=== PATIENT | female | born 1990 | race Caucasian/White ===

== ENCOUNTER 2016-11-28 12:51 | Outpatient (CLI) | payer OTHER ==
[2016-11-28 12:57] VITALS: BP 164/80; PULSE 67
[2016-11-28] MEDS ORDERED: PREN-93 PO (12:59)
[2016-11-28] MEDS ORDERED: LABE200T25 PO (12:59)
[2016-11-28] MEDS ORDERED: FER325 PO (13:00)
--- NOTE | 2016-11-28 13:09 | RADRPT ---
PROCEDURE: US OB biophysical profile. CLINICAL INDICATION: decreased movements, hypertension TECHNIQUE: Multiple sonographic images of the pelvis were obtained. The images were reviewed on a PACS workstation. COMPARISON: No prior studies are available for comparison. FINDINGS: There is a single viable intrauterine gestation. Cardiac activity is present with 150 beats per min nome. There is a vertex presentation. The placenta is posterior. There is no evidence of placental abruption. There is a normal amount of amniotic fluid with an MAHSA = 9.2 cm. Biophysical profile: movement 2/2 tone 2/2. breathing 2/2 MAHSA 2/2 Total 12/02 RPTAT: AA . IMPRESSION: Normal biophysical profile. . .En Ortez MD, MD Date Time Electronically viewed and signed by .En Ortez MD, MD on 11/28/2016 13:08 .S/
[2016-11-28] MEDS ORDERED: DEXTROSE 5%-LR 1,000 ML IV SCH (14:00)
--- NOTE | 2016-11-28 15:34 | TRIAGE ---
OB Triage Datetime Report Generated by CPN: 11/28/2016 15:34 Datetime: 11/28/2016 15:08 Comments: Dr. Carlos at bedside to review strip and blood pressures 140's-150's over 80. New order to sent pt home and to follow up on nubia as schedule. Datetime: 11/28/2016 15:06 Labor Evaluation Frequency: 4-11 Monitor Mode: External Duration (sec)2399: 40-70 Quality: Mild Pattern: Normal: <= 5 Contractions in 10 Minutes Resting Tone [place]: Relaxed Heart Rate FHR Baseline Rate: 130 Monitor Mode: External US FHR Baseline Changes: No Baseline Change Variability: Moderate 6-25 bpm Accelerations: 15X15 Decelerations: None Category: Category I Pain Assessment Pain Scale: 0 Pain Presence: None/Denies Pain Type: N/A Pain Goal: 3 Datetime: 11/28/2016 14:59 Labor Evaluation Frequency: 3-11 Monitor Mode: External Duration (sec)2399: 40-70 Quality: Mild Pattern: Normal: <= 5 Contractions in 10 Minutes Resting Tone [place]: Relaxed Heart Rate FHR Baseline Rate: 135 Monitor Mode: External US FHR Baseline Changes: No Baseline Change Variability: Moderate 6-25 bpm Accelerations: 15X15 Decelerations: None Category: Category I Pain Assessment Pain Scale: 0 Pain Presence: None/Denies Pain Type: N/A Pain Goal: 3 Datetime: 11/28/2016 14:22 Labor Evaluation Frequency: x3 Monitor Mode: External Duration (sec)2399: 40-70 Quality: Mild Pattern: Normal: <= 5 Contractions in 10 Minutes Resting Tone [place]: Relaxed Heart Rate FHR Baseline Rate: 145 Monitor Mode: External US FHR Baseline Changes: No Baseline Change Variability: Moderate 6-25 bpm Accelerations: 15X15 Decelerations: None Category: Category I Datetime: 11/28/2016 14:18 Comments: Pt refused the IV she stated "Baby is being moving " Datetime: 11/28/2016 14:17 Comments: Assume care back from pt Datetime: 11/28/2016 13:43 Comments: This RN to lunch endorse care to Cinthia RN Datetime: 11/28/2016 13:42 Comments: Dr. Gonzalez was informed of pt's BPP 8/8, MAHSA 9.2, Min variability. New order to start I V and give D5LR Datetime: 11/28/2016 13:40 Labor Evaluation Frequency: x2 Monitor Mode: External Duration (sec)2399: 40-50 Quality: Mild Pattern: Normal: <= 5 Contractions in 10 Minutes Resting Tone [place]: Relaxed Heart Rate FHR Baseline Rate: 145 Monitor Mode: External US FHR Baseline Changes: No Baseline Change Variability: Moderate 6-25 bpm Accelerations: 15X15 Decelerations: None Category: Category I Pain Assessment Pain Scale: 0 Pain Presence: None/Denies Pain Type: N/A Pain Goal: 3 Datetime: 11/28/2016 13:04 Stage of : OB Triage Assessment Type: Triage Maternal Assessment Level of Consciousness: Fully Conscious DTR's/Clonus: DTRs 2+; No Clonus Headache: Denies Blurred Vision: No Respiratory Effort: Unlabored; Regular Rhythm; Equal Expansion Breath Sounds, Left: Clear and Equal Breath Sounds, Right: Clear and Equal Nausea/Vomiting: Denies RUQ Epigastric Pain: Denies Lower Extremities Edema: None Upper Extremities Edema: None Facial Edema: None Temperature Route: Axillary Fall Risk Assessment History of Falling: (0) No Secondary Diagnosis: (0) No Ambulatory Aid: (0) Bedrest/Nurse Assist IV Therapy: (0) No Gait: (0) Normal/Bedrest/Immobile Mental Status: (0) Oriented to Own Ability Fall Score: 0 Fall Risk Score Definition: No Risk: No action required Pain Assessment Pain Scale: 3 Pain Presence: None/Denies Pain Type: N/A Pain Goal: 3 Datetime: 11/28/2016 13:00 Time of Arrival: 11/28/2016 12:33 EGA: 35.0 Arrived By: Ambulatory Arrived From: Other Unit in Hospital Chief Complaint: Sent from T for extended monitoring Movement: Present Contractions: Denies/Absent Rupture of Membranes: Denies Vaginal Bleeding: None Vaginal Discharge: Denies Recent Sexual Intercouse: Denies Abdominal Trauma: Not Applicable Patient Complaints: None Initial Plan: NST, BPP Datetime: 11/28/2016 12:59 Comments: Ultrasound in progress
== END 2016-11-28 15:25 | disposition home or self-care (01) ==
LOC: OBT 12:51 → L-D 12:52 → OBT 15:25
PROVIDERS: ATTEND Obstetrics & Gynecology
DX: O76 Abnormality in fetal heart rate and rhythm complicating labor and delivery (principal); Z3A.35 35 weeks gestation of pregnancy
CPT/HCPCS: 76818; J7121; Z7500; G0463

== ENCOUNTER 2016-12-25 15:37 | Inpatient (IN) | payer OTHER ==
[~2016-12-25] VITALS: Ht 162.6 cm; Wt 109.1 kg
[~2016-12-25 15:37] MED LIST: FER325 PO; LABE200T25 PO; PREN-93 PO
[2016-12-25] MEDS ORDERED: LACTATED RINGER'S 1,000 ML IV PRN (16:10)
[2016-12-25 16:36] VITALS: Ht 162.6 cm; Wt 109.1 kg
[2016-12-25] MEDS: LACTATED RINGER'S 1,000 ML IV SCH ×2 (16:54→23:06)
[2016-12-25] MEDS ORDERED: DINOPROSTONE 10 MG VAG SUPP VAG ONE (16:54)
[2016-12-25] MEDS ORDERED: MISOPROSTOL 200 MCG TAB PR PRN (17:00)
[2016-12-25] MEDS ORDERED: METHYLERGONOVINE 0.2 MG INJ IM PRN (17:00)
[2016-12-25] MEDS ORDERED: OXYTOCIN 30 UNITS/LR 500 ML IV SCH ×2 (17:00)
[2016-12-25] MEDS ORDERED: LIDOCAINE 1% (MPF) 30 ML INJ INJ PRN (17:00)
[2016-12-25] MEDS ORDERED: OXYTOCIN 30 UNITS/LR 500 ML IV PRN (17:00)
[2016-12-25] MEDS ORDERED: IBUPROFEN 600 MG TAB PO PRN (17:00)
[2016-12-25] MEDS ORDERED: DINOPROSTONE 10 MG VAG SUPP ONE (17:00)
[2016-12-25] MEDS ORDERED: AMPICILLIN 2 GM/NS (PMX) 100 ML IV ONE (17:00)
[2016-12-25] MEDS ORDERED: CARBOPROST 250 MCG INJ IM PRN (17:00)
[2016-12-25] MEDS ORDERED: BUTORPHANOL 2 MG INJ IV PRN (17:00)
[2016-12-25 17:06] LABS: BASOPHILS % 0.2 % (0.0-2.0); EOSINOPHILS # 0.1 10^3/ul (0.0-0.5); EOSINOPHILS % 0.9 % (0.0-7.0); HEMATOCRIT 34.3 % (37.0-47.0); HEMOGLOBIN 12.3 g/dl (12.0-16.0); LYMPHOCYTES # 1.4 10^3/ul (0.8-2.9); LYMPHOCYTES % 14.3 % (15.0-51.0); MEAN CORPUSCULAR HEMOGLOBIN 31.9 pg (29.0-33.0); MEAN CORPUSCULAR HGB CONC 35.9 g/dl (32.0-37.0); MEAN CORPUSCULAR VOLUME 88.9 fl (82.0-101.0); MEAN PLATELET VOLUME 10.3 fl (7.4-10.4); MONOCYTE # 0.6 10^3/ul (0.3-0.9); MONOCYTES % 6.5 % (0.0-11.0); NEUTROPHILS % 77.7 % (39.0-77.0); PLATELET COUNT 253 10^3/UL (140-415); RED BLOOD COUNT 3.86 10^6/ul (4.20-5.40); RED CELL DISTRIBUTION WIDTH 12.6 % (11.5-14.5); WHITE BLOOD COUNT 9.5 10^3/ul (4.8-10.8)
[2016-12-25 17:29] LABS: INR 0.88; PROTIME 11.9 Sec (12.2-14.2); PT RATIO 0.9
[2016-12-25 17:30] LABS: PARTIAL THROMBOPLASTIN TIME 26.9 Sec (25.0-35.0)
[2016-12-25] MEDS: LABETALOL 200 MG TAB PO SCH (21:00)
[2016-12-26] MEDS: AMPICILLIN 1 GM/NS (PMX) 50 ML IV SCH ×4 (01:26→12:56)
[2016-12-26] MEDS ORDERED: OXYTOCIN 30 UNITS/LR 500 ML BAG IV ONE (07:00)
[2016-12-26] MEDS ORDERED: OXYTOCIN 30 UNITS/LR 500 ML IV SCH (08:30)
[2016-12-26] MEDS: LACTATED RINGER'S 1,000 ML IV SCH (08:35)
[2016-12-26] MEDS: LABETALOL 200 MG TAB PO SCH ×2 (08:49→22:00)
[2016-12-26 10:18] LABS: ADD UMIC YES; UR ASCORBIC ACID NEGATIVE (NEGATIVE); UR BILIRUBIN (Dip) NEGATIVE (NEGATIVE); UR BLOOD (Dip) NEGATIVE (NEGATIVE); UR CLARITY CLEAR (CLEAR); UR COLOR YELLOW (YELLOW); UR GLUCOSE (Dip) NEGATIVE (NEGATIVE); UR KETONES (Dip) NEGATIVE (NEGATIVE); UR LEUKOCYTE ESTERASE (Dip) TRACE Leu/ul (NEGATIVE); UR NITRITE (Dip) NEGATIVE (NEGATIVE); UR RBC 1 /HPF (0-5); UR SQUAMOUS EPITHELIAL CELL FEW /HPF (FEW); UR TOTAL PROTEIN (Dip) NEGATIVE (NEGATIVE); UR UROBILINOGEN (Dip) NEGATIVE (NEGATIVE)
[2016-12-26] MEDS ORDERED: FENTAnyl 2MCG/ML-ROPIV 0.2% 100 ML ONE (12:45)
[2016-12-26] MEDS ORDERED: FENTAnyl 2MCG/ML-ROPIV 0.2% 100 ML BAG EPI SCH (13:45)
[2016-12-26] MEDS ORDERED: HYDROmorphONE 1 MG/ML SYG IV PRN ×2 (14:00)
[2016-12-26] MEDS ORDERED: DIPHENHYDRAMINE 50 MG INJ IV PRN ×2 (14:00→18:00)
[2016-12-26] MEDS ORDERED: NALOXONE (0.4 MG/ML) INJ IV PRN (14:00)
[2016-12-26] MEDS ORDERED: ONDANSETRON 4 MG INJ IV PRN ×2 (14:00→18:00)
--- NOTE | 2016-12-26 16:08 | HP ---
Date/Time of Note Date/Time of Note DATE: 12/26/16 TIME: 15:50 OB - History Hx of Present Free Text/Dictation This is a 26 years old female 4 para 3 EDC of January 02, 2017 admitted to [facility] complaining of labor contraction, examination on admission, cervix 2-3 cm dilated 60% effaced vertex at -3 station osei every 2-4 minutes moderate quality heart rate at 145 bpm. Patient has been under the care of the [facility] her was not complicated with gestational diabetes or -induced hypertension [employer] history [place] at age 11 history of total of 4 including present with 3 normal vaginal delivery Chief Complaint: Labor pain Estimated Due Date: Jan 02, 2017 : 4 Para: 3 Care: Good Care Ultrasounds: Normal mid trimester US Obstetrical Complications: None Medical Complications: None Past Family/Social History * Past Medical, Surgical, Family and Obstetric Histories reviewed from chart. Rubella: immune RPR/VDRL: Negative GBS Status: Negative HBsAG: Negative OB Admission Exam Physical Exam HEENT: WNL Heart: Rhythm Normal Lungs: Clear, Equal Abdomen: WNL Extremities: Normal Reflexes: Normal Cervical Dilatation: 3cm Effacement: Other (60%) Station: -2 Membranes: Intact Heart Rate: 130's Decelerations: No Decelerations Varibility: Moderate Contractions on Admission: < 5 Minutes Apart Intensity: Moderate Last 72 hours Lab Results CBC & BMP 12/25/16 16:10 TESFAYE FERRERA MD Dec 26, 2016 16:01
[2016-12-26] MEDS ORDERED: CEFAZOLIN 2 GM/50 ML (PMX) 50 ML IVPB ONE (16:30)
[2016-12-26] MEDS ORDERED: CEFAZOLIN 2 GM/50 ML (PMX) 50 ML IV SCH (16:30)
[2016-12-26] MEDS ORDERED: FENTAnyl 50 MCG/ML VIAL ONE (17:17)
[2016-12-26] MEDS ORDERED: LIDOCAINE 2%/EPI 30 ML INJ ONE (17:24)
[2016-12-26] MEDS ORDERED: morphine SULFATE/PF (10 MG/10 ML) INJ ONE (17:55)
[2016-12-26] MEDS ORDERED: KETOROLAC 30 MG INJ IV PRN (18:00)
[2016-12-26] MEDS ORDERED: METOCLOPRAMIDE 10 MG INJ IV PRN (18:00)
[2016-12-26] MEDS ORDERED: MEPERIDINE 25 MG INJ IV PRN (18:00)
[2016-12-26] MEDS ORDERED: HYDROmorphONE (0.2 MG/ML) 10ML SYG IV PRN ×3 (18:00)
[2016-12-26] MEDS ORDERED: OXYCODONE/ACETAMINOPHEN (5/325) TAB PO PRN (18:00)
[2016-12-26] MEDS ORDERED: FENTAnyl 50 MCG/ML VIAL IV PRN ×3 (18:00)
[2016-12-26] MEDS ORDERED: ALBUTEROL 0.083% (NEB) 2.5 MG/3 ML AMP HHN PRN (18:00)
--- NOTE | 2016-12-26 18:22 | OPR ---
Operative Report Planned Procedure Free Text/Dictation 26 years old female 4 para 3 EDC January 02, 2017 complicated with hypertension suitable superimposed -induced hypertension admitted for induction of labor during the course of labor noted category 2 and 3 heart tracing since the anticipating a quick and timely delivery was discussed with the patient and alternative route of delivery section decided is being prepared for primary since had requested tubal ligation she will undergo bilateral tubal ligation at the time of her section Procedure date Dec 26, 2016 Procedure(s) Primary bilateral tubal ligation Performed by: TESFAYE FERRERA MD Assisting provider: BECKI GORDILLO MD Anesthesiologist: HENNA CAGLE Pre-procedure diagnosis 39 week, see complicated with -induced hypertension Anesthesia Type: spinal Procedure Description Under satisfactory [] spinal anesthesia, the patient was prepped and draped and placed in a supine position, tilted to the left. Pfannenstiel incision was made , carried through the subcutaneous tissue. Bleeders brought under control with electrocautery. Fascia incised to the length of the incision. Rectus muscles from the fascia, divided midline. Peritoneum exposed, entered through a transverse incision. Exploration of abdomen revealed gravid uterus normal- appearing tubes and ovaries. Bladder flap was developed. Transverse incision was made in the lower segment of the uterus. Amniotic sac ruptured. [Clear] amniotic fluid noted baby boy was delivered from unengaged vertex. [] Nasal oropharyngeal suction was performed. baby handed to the team for immediate attention is received 20 units of Pitocin. placenta delivered manually intact. Uterine cavity cleaned with wet sponge and drainage established. Uterus closed in 2 layers using [Krill #1] in continuous fashion. Peritoneal cavity irrigated with warm saline. Sponge, needle and instrument count reported to be correct. Abdominal peritoneum closed with [chromic cut] continuously. Rectus muscle approximated with [erupted 2-0 chromic catgut]. Fascia closed with 1 PDS subcutaneous tissue approximated with interrupted 2-0 chromic catgut skin closed with NSORB, Estimated blood loss [600]mL. Urine bag contained 200]mL of clear urine patient tolerated procedure well and transferred to recovery room in good condition. Post-Procedure Findings: Live Baby boy 9 and 9 Specimen removed: No Complications: None Pt Condition post procedure: stable Physician Certification I, the undersigned physician, hereby certify that I have discussed the procedure described in this consent form with this patient (or the patient's legal underwriting service representative), including: * The risk and benefits of the procedure; * Any adverse reactions that may reasonably be expected to occur; * Any alternative efficacious methods of treatment which may be medically viable ; * The potential problems that may occur during recuperation; * Potential for blood transfusion and associated risks/benefits; and * Any research or economic interest I may have regarding this treatment. I further certify that the patient/legally responsible person was encouraged to ask question and that all questions were answered. TESFAYE FERRERA MD Dec 26, 2016 18:21
[2016-12-26] MEDS: OXYTOCIN 30 UNITS/LR 500 ML IV SCH (21:54)
[2016-12-26] MEDS ORDERED: CARBOPROST 250 MCG INJ IM PRN (22:00)
[2016-12-26] MEDS ORDERED: LANOLIN 7 GM TUBE TOP PRN (22:00)
[2016-12-26] MEDS ORDERED: CEFAZOLIN 1 GM/50 ML (PMX) 50 ML IVPB SCH (22:00)
[2016-12-26] MEDS ORDERED: METHYLERGONOVINE 0.2 MG INJ IM PRN (22:00)
[2016-12-26] MEDS ORDERED: OXYTOCIN 30 UNITS/LR 500 ML IV PRN (22:00)
[2016-12-26] MEDS ORDERED: MISOPROSTOL 200 MCG TAB PR PRN (22:00)
[2016-12-26 23:15] VITALS: BP 144/70; PULSE 80; RESP 18
[2016-12-27] MEDS: LACTATED RINGER'S 1,000 ML IV SCH ×4 (00:35→16:37)
[2016-12-27] MEDS: OXYTOCIN 30 UNITS/LR 500 ML IV SCH ×6 (01:54→21:54)
[2016-12-27] MEDS: KETOROLAC 30 MG INJ IV PRN ×2 (04:05→12:51)
[2016-12-27 04:33] VITALS: BP 101/75; PULSE 78; RESP 20
[2016-12-27 08:10] VITALS: BP 112/67; PULSE 77; RESP 20
[2016-12-27 08:45] LABS: BASOPHILS % 0.2 % (0.0-2.0); EOSINOPHILS % 0.3 % (0.0-7.0); HEMATOCRIT 32.6 % (37.0-47.0); HEMOGLOBIN 11.1 g/dl (12.0-16.0); MEAN CORPUSCULAR HEMOGLOBIN 30.9 pg (29.0-33.0); MEAN CORPUSCULAR VOLUME 90.8 fl (82.0-101.0); MEAN PLATELET VOLUME 9.9 fl (7.4-10.4); MONOCYTE # 0.6 10^3/ul (0.3-0.9); MONOCYTES % 6.5 % (0.0-11.0); NEUTROPHILS % 81.6 % (39.0-77.0); PLATELET COUNT 191 10^3/UL (140-415); RED BLOOD COUNT 3.59 10^6/ul (4.20-5.40); RED CELL DISTRIBUTION WIDTH 12.4 % (11.5-14.5); WHITE BLOOD COUNT 9.4 10^3/ul (4.8-10.8)
[2016-12-27] MEDS: LABETALOL 200 MG TAB PO SCH ×2 (09:14→21:26)
[2016-12-27] MEDS: SENNA/DOCUSATE NA (8.6MG/50MG) TAB PO SCH ×2 (09:15→21:26)
[2016-12-27 12:00] VITALS: BP 126/61; PULSE 80; RESP 20
--- NOTE | 2016-12-27 12:21 | PN ---
Date/Time of Note Date/Time of Note DATE: 12/27/16 TIME: 12:16 OB Subjective Subjective Subjective Post C section day Doing Well Afebrile Ambulatory Chest Clear Breasts are soft , Nipples are intact Abdomen is soft Fundus is firm Moderate amount of lochia Incision is clean ,No evidence of infection No calf tenderness No ankle edema Her blood pressure running around 1 40/80 . She has a history of elevated blood pressure even between her so we will continue her labetalol for now Laboratory Tests Test 12/27/16 08:18 White Blood Count 9.410^3/ul Red Blood Count 3.5910^6/ul Hemoglobin 11.1g/dl Hematocrit 32.6% Mean Corpuscular Volume 90.8fl Mean Corpuscular Hemoglobin 30.9pg Mean Corpuscular Hemoglobin Concent 34.0g/dl Red Cell Distribution Width 12.4% Platelet Count 62740^3/UL Mean Platelet Volume 9.9fl Neutrophils % 81.6% Lymphocytes % 11.0% Monocytes % 6.5% Eosinophils % 0.3% Basophils % 0.2% Nucleated Red Blood Cells % 0.0/100WBC Neutrophils # (Manual) 7.710^3/ul Lymphocytes # 1.010^3/ul Monocytes # 0.610^3/ul Eosinophils # 0.010^3/ul Basophils # 0.010^3/ul Nucleated Red Blood Cells # 0.010^3/ul Current Medications Medications (Trade) Dose Ordered Sig/Claus Route PRN Reason Start Time Stop Time Status Last Admin Dose Admin Lactated Ringer's 1,000 ml @ 125 mls/hr Q8H IV 12/25/16 16:37 12/27/16 00:35 Ampicillin 100 ml @ 100 mls/hr ONCE ONCE IV 12/25/16 17:00 12/25/16 17:59 DC 12/25/16 17:07 Ampicillin (Ampicillin 1 Gm/ NS (Pmx)) 50 ml @ 100 mls/hr Q4H IV 12/25/16 21:00 12/26/16 22:02 DC 12/26/16 12:56 Butorphanol Tartrate (Stadol) 2 mg Q2H PRN IV PAIN 12/25/16 17:00 12/26/16 22:02 DC Lidocaine 30 ml 30 ml ONCE PRN INJ EPISIOTOMY/TEARING 12/25/16 17:00 12/26/16 22:02 DC Oxytocin/Lactated Ringer's 500 ml @ 125 mls/hr ONCE -MAY REPEAT X1 IV 12/25/16 17:00 12/26/16 22:02 DC Oxytocin/Lactated Ringer's 500 ml @ 125 mls/hr ONCE IV 12/25/16 17:00 12/26/16 22:02 DC 12/26/16 20:27 Ibuprofen 600 mg 600 mg ONCE PRN PO Mild Pain (Pain Score 1-3) 12/25/16 17:00 12/26/16 22:02 DC Lactated Ringer's 1,000 ml @ 2,000 mls/hr Q30M PRN IV PRE-EPIDURAL BOLUS 12/25/16 16:10 12/26/16 22:02 DC Oxytocin/Lactated Ringer's 500 ml @ 0 mls/hr ONCE PRN IV For Hemorrhage Management 12/25/16 17:00 12/26/16 22:02 DC Methylergonovine Maleate (Methergine) 0.2 mg ONCE PRN IM VAGINAL BLEEDING 12/25/16 17:00 12/26/16 22:02 DC Carboprost Tromethamine (Hemabate) 250 mcg ONCE PRN IM VAGINAL BLEEDING 12/25/16 17:00 12/26/16 22:02 DC Misoprostol (Cytotec) 1,000 mcg ONCE PRN MI VAGINAL BLEEDING 12/25/16 17:00 12/26/16 22:02 DC Dinoprostone (Cervidil Vaginal Supp) 10 mg STK-MED ONCE .ROUTE 12/25/16 17:00 12/25/16 17:01 DC Dinoprostone (Cervidil Vaginal Supp) 10 mg ONCE ONCE VAG 12/25/16 16:54 12/25/16 17:07 DC 12/25/16 17:08 Labetalol HCl 200 mg 200 mg BID PO 12/25/16 21:00 12/27/16 09:14 Oxytocin/Lactated Ringer's 500 ml @ 0 mls/hr TITRATE IV 12/26/16 08:30 12/26/16 22:02 DC 12/26/16 08:36 Fentanyl/ Ropivacaine 100 ml @ ud STK-MED ONCE .ROUTE 12/26/16 12:45 12/26/16 12:46 DC Diphenhydramine HCl (Benadryl) 25 mg Q6H PRN IV ITCHING 12/26/16 14:00 12/27/16 13:59 Fentanyl/ Ropivacaine 100 ml EPIDURAL INFUSION EPI 12/26/16 13:45 12/26/16 22:02 DC Hydromorphone HCl (Dilaudid) 0.2 mg Q3H PRN IV PAIN LEVEL 1-5 12/26/16 14:00 12/27/16 13:59 Hydromorphone HCl (Dilaudid) 0.4 mg Q3H PRN IV PAIN LEVEL 6-10 12/26/16 14:00 12/27/16 13:59 12/26/16 22:01 Ketorolac Tromethamine (Toradol) 30 mg Q6H PRN IV PAIN 12/26/16 14:00 12/27/16 13:59 12/27/16 04:05 Naloxone HCl (Narcan) 0.1 mg Q2M PRN IV FOR RESP RATE 8 OR LESS 12/26/16 14:00 12/27/16 13:59 Ondansetron HCl 4 mg 4 mg Q6H PRN IV NAUSEA AND/OR VOMITING 12/26/16 14:00 12/27/16 13:59 Cefazolin Sodium/ Dextrose 50 ml @ 100 mls/hr ONCE IV 12/26/16 16:30 12/26/16 22:02 DC Cefazolin Sodium/ Dextrose (Ancef 2 Gm/50 ml (Pmx)) 50 ml @ ud STK-MED ONCE IVPB 12/26/16 16:30 12/26/16 16:31 DC Fentanyl (Sublimaze) 100 mcg STK-MED ONCE .ROUTE 12/26/16 17:17 12/26/16 17:18 DC Lidocaine/ Epinephrine (Xylocaine 2%/ Epi) 30 ml STK-MED ONCE .ROUTE 12/26/16 17:24 12/26/16 17:25 DC Albuterol (Proventil 0.083% (Neb)) 2.5 mg PACU ORDER PRN HHN WHEEZING 12/26/16 18:00 12/26/16 22:02 DC Diphenhydramine HCl (Benadryl) 25 mg PACU ORDER PRN IV PRURITUS 12/26/16 18:00 12/26/16 22:02 DC Fentanyl (Sublimaze) 25 mcg PACU ORDER PRN IV MILD PAIN LEVEL 1-3 12/26/16 18:00 12/26/16 22:02 DC Fentanyl (Sublimaze) 50 mcg PACU ODER PRN IV MODERATE PAIN LEVEL 4-6 12/26/16 18:00 12/26/16 22:02 DC Fentanyl (Sublimaze) 75 mcg PACU ORDER PRN IV SEVERE PAIN LEVEL 7-10 12/26/16 18:00 12/26/16 22:02 DC Hydromorphone HCl (Dilaudid (Rec)) 0.2 mg PACU ORDER PRN IV MILD PAIN LEVEL 1-3 12/26/16 18:00 12/26/16 22:02 DC Hydromorphone HCl (Dilaudid (Rec)) 0.4 mg PACU ORDER PRN IV MODERATE PAIN LEVEL 4-6 12/26/16 18:00 12/26/16 22:02 DC Hydromorphone HCl (Dilaudid (Rec)) 0.6 mg PACU ORDER PRN IV SEVERE PAIN LEVEL 7-10 12/26/16 18:00 12/26/16 22:02 DC Ketorolac Tromethamine (Toradol) 30 mg PACU ORDER PRN IV FOR PAIN AFTER IV NARCOTIC MED 12/26/16 18:00 12/26/16 22:02 DC 12/26/16 20:21 Meperidine HCl (Demerol) 25 mg PACU ORDER PRN IV POST-OP RIGORS 12/26/16 18:00 12/26/16 22:02 DC Metoclopramide HCl (Reglan) 10 mg PACU ORDER PRN IV NAUSEA AND/OR VOMITING 12/26/16 18:00 12/26/16 22:02 DC Ondansetron HCl (Zofran Inj) 4 mg PACU ORDER PRN IV NAUSEA AND/OR VOMITING 12/26/16 18:00 12/26/16 22:02 DC Oxycodone/ Acetaminophen (Percocet (5/ 325)) 1 tab PACU ORDER PRN PO PAIN LEVEL 1-5 12/26/16 18:00 12/26/16 22:02 DC Morphine Sulfate (Duramorph) 10 mg STK-MED ONCE .ROUTE 12/26/16 17:55 12/26/16 17:56 DC Acetaminophen/ Hydrocodone Bitart (Carlotta (5/325)) 1 tab Q4H PRN PO PAIN LEVEL 4-6 12/27/16 14:00 Acetaminophen/ Hydrocodone Bitart (Carlotta (5/325)) 2 tab Q4H PRN PO PAIN LEVEL 7-10 12/27/16 14:00 Oxycodone/ Acetaminophen (Percocet (5/ 325)) 1 tab Q4H PRN PO PAIN LEVEL 4-6 12/27/16 14:00 Oxycodone/ Acetaminophen (Percocet (5/ 325)) 2 tab Q4H PRN PO PAIN LEVEL 7-10 12/27/16 14:00 Ibuprofen (Motrin) 600 mg Q6 PO 12/27/16 18:00 Simethicone (Mylicon) 160 mg Q8H PRN PO DISTENSION/GAS/BLOATING 12/26/16 22:00 Senna/Docusate Sodium (Senokot-S) 1 tab BID PO 12/27/16 09:00 12/27/16 09:15 Lanolin (Khl-Y-Seutwd) 1 applic BEDSIDE MEDICATION PRN TOP BEDSIDE FOR GABRIELA TO NIPPLES 12/26/16 22:00 Diphtheria/ Tetanus/Acell Pertussis 0.5 ml 0.5 ml ONCE ONCE IM* 12/29/16 09:00 12/29/16 09:01 Oxytocin/Lactated Ringer's 500 ml @ 0 mls/hr ONCE PRN IV For Hemorrhage Management 12/26/16 22:00 Methylergonovine Maleate (Methergine) 0.2 mg ONCE PRN IM VAGINAL BLEEDING 12/26/16 22:00 Carboprost Tromethamine (Hemabate) 250 mcg ONCE PRN IM VAGINAL BLEEDING 12/26/16 22:00 Misoprostol 1000 mcg 1,000 mcg ONCE PRN MI VAGINAL BLEEDING 12/26/16 22:00 Cefazolin Sodium 50 ml @ 100 mls/hr ONCE IVPB 12/26/16 22:00 12/26/16 22:29 DC 12/26/16 23:28 Oxytocin/Lactated Ringer's 500 ml @ 125 mls/hr Q4H IV 12/26/16 21:54 New born is doing well, Breast feeding BECKI GORDILLO MD Dec 27, 2016 12:21
[2016-12-27] MEDS ORDERED: OXYCODONE/ACETAMINOPHEN (5/325) TAB PO PRN ×2 (14:00)
[2016-12-27] MEDS ORDERED: HYDROCODONE/APAP (5/325) TAB PO PRN (14:00)
[2016-12-27 16:00] VITALS: BP 137/81; PULSE 87; RESP 20
[2016-12-27] MEDS: HYDROCODONE/APAP (5/325) TAB PO PRN ×2 (17:38→23:20)
[2016-12-27] MEDS: IBUPROFEN 600 MG TAB PO SCH ×2 (17:38→23:20)
[2016-12-27 20:00] VITALS: BP 104/65; PULSE 93; RESP 20
[2016-12-28] MEDS: LACTATED RINGER'S 1,000 ML IV SCH (00:37)
[2016-12-28] MEDS: OXYTOCIN 30 UNITS/LR 500 ML IV SCH ×2 (01:54→05:54)
[2016-12-28 03:58] VITALS: BP 134/69; PULSE 74; RESP 20
[2016-12-28] MEDS: IBUPROFEN 600 MG TAB PO SCH ×4 (05:21→23:55)
[2016-12-28 08:00] VITALS: BP 121/59; PULSE 73; RESP 18
[2016-12-28 09:23] VITALS: BP 128/64; PULSE 80; RESP 19
[2016-12-28] MEDS: LABETALOL 200 MG TAB PO SCH ×2 (09:23→21:46)
[2016-12-28] MEDS: SENNA/DOCUSATE NA (8.6MG/50MG) TAB PO SCH ×2 (09:23→21:46)
--- NOTE | 2016-12-28 10:16 | PN ---
Date/Time of Note Date/Time of Note DATE: 12/28/16 TIME: 10:13 OB Subjective Subjective Subjective Post day 2 Vital signs are stable Abdomen soft Uterus firm Incision dry Bowel sounds present No bowel movement Extremities normal Ambulation encouraged TESFAYE FERRERA MD Dec 28, 2016 10:16
[2016-12-28] MEDS ORDERED: NA PHOSPHATE/BIPHOS 133 ML ENEMA PR ONE ×2 (10:30)
[2016-12-28 15:52] VITALS: BP 128/72; RESP 18
[2016-12-28 19:34] VITALS: BP 133/73; PULSE 83; RESP 18
[2016-12-28] MEDS: HYDROCODONE/APAP (5/325) TAB PO PRN (19:34)
[2016-12-29 04:11] VITALS: BP 117/57; PULSE 76; RESP 18
[2016-12-29] MEDS: IBUPROFEN 600 MG TAB PO SCH ×2 (05:59→11:42)
[2016-12-29 08:30] VITALS: BP 143/81; PULSE 86; RESP 19
[2016-12-29] MEDS ORDERED: DIPHTH/TET/ACEL PERTUSS (ADULT) 0.5 ML VIAL IM* ONE (09:00)
[2016-12-29] MEDS: SENNA/DOCUSATE NA (8.6MG/50MG) TAB PO SCH (09:00)
[2016-12-29] MEDS: LABETALOL 200 MG TAB PO SCH (09:11)
--- NOTE | 2016-12-29 10:28 | PD.PPDC ---
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
--- NOTE | 2016-12-29 10:39 | DS ---
Date/Time of Note Date/Time of Note DATE: 12/29/16 TIME: 10:35 Discharge Summary Admission/Discharge Info Admit Date/Time Dec 25, 2016 at 15:37 Discharge Date/Time December 29, 2016 Discharge Diagnosis Post primary due to superimposed PIH on chronic hypertension Patient Condition: Good Procedures Primary Hx of Present Illness Term complicated with PIH Hospital Course Satisfactory uneventful Home Meds Reported Medications Ferrous Sulfate* (Ferrous Sulfate*) 325 Mg Tabec, 325 MG PO DAILY, TAB 11/28/16 Vit No.124/Iron/FA ( Vitamin Tablet) 1 Each Tablet, 1 EACH PO, TAB 11/28/16 Labetalol Hcl* (Labetalol Hcl*) 200 Mg Tablet, 200 MG PO BID, TAB 11/28/16 Follow-up Plan Post instructions given recommended patient to make appointment to be seen at the clinic in 1 week Primary Care Provider [facility] Time spent on discharge: < 30 minutes TESFAYE FERRERA MD Dec 29, 2016 10:39
== END 2016-12-29 15:30 | disposition home or self-care (01) | DRG 765 ==
LOC: L-D 15:37 → PP1 12-26 23:16
PROVIDERS: ADMIT Obstetrics & Gynecology; ATTEND Obstetrics & Gynecology
PROC: 10D00Z1 Extraction of Products of Conception, Low, Open Approach (ICD-10-PCS; principal; 2016-12-26 17:00)
DX: O10.92 Unspecified pre-existing hypertension complicating childbirth (principal); Z68.41 Body mass index [BMI] 40.0-44.9, adult; I10 Essential (primary) hypertension; Z37.0 Single live birth; Z3A.39 39 weeks gestation of pregnancy; O99.214 Obesity complicating childbirth; E66.01 Morbid (severe) obesity due to excess calories
CPT/HCPCS: 62319; 81001; 85025; 85610; 85730; 86592; 86900; 86901; 87340; 88302; 90715; 94760; 99464; J0290; J0690; J1170; J1885; J2274; J2590; J3010; J7120